=== PATIENT | male | born 1955 | race Caucasian/White ===

== ENCOUNTER 2020-11-22 00:13 | Emergency (ER) | payer OTHER, MEDICARE ==
[2020-11-22 01:49] LABS: Absolute Lymphocytes (CBC) 0.7 K/uL (0.7-4.9); Basophils % 1.6 % (0-1.3); Hematocrit 52.6 % (39.6-49.0); Lymphocytes % 8.2 % (15.3-44.8); MPV 7.2 fL (7.6-11.3); Protime INR 1.01
[2020-11-22 02:03] LABS: ALT/SGPT 33 U/L (12-78); AST/SGOT 28 U/L (15-37); Albumin 4.1 g/dL (3.4-5.0); Alkaline Phosphatase 50 U/L (45-117); BUN Blood Urea Nitrogen 9 mg/dL (7-18); Bicarbonate 24 mmol/L (21-32); Bilirubin Direct 0.1 mg/dL (0-0.2); Bilirubin Total 0.4 mg/dL (0.2-1.0); Glucose Level 153 mg/dL (74-106); Magnesium 2.1 mg/dL (1.8-2.4); NT PRO-BNP 311 pg/mL (<125); Potassium 3.4 mmol/L (3.5-5.1); Protein, Total 8.4 g/dL (6.4-8.2); Sodium Level 135 mmol/L (136-145); Troponin (Emerg Dept Use Only) < 0.02 ng/mL (0.0-0.045)
[2020-11-22] MEDS ORDERED: MECLIZINE HCL 12.5 MG TAB ONE (04:07)
[2020-11-22] MEDS ORDERED: POTASSIUM CL SA 10 MEQ TAB PO ONE (04:08)
[2020-11-22] MEDS ORDERED: NA CHLORIDE 0.9% 500 ML ONE (04:09)
[2020-11-22] MEDS ORDERED: NA CHLORIDE 0.9% 1,000 ML ONE (04:10)
--- NOTE | 2020-11-22 04:26 | ER ---
Nurse's Notes [facility] Name: Krishna Don Age: 65 yrs Sex: Male : 1955 Arrival Date: 11/22/2020 Time: 00:16 Bed 13 Private MD: Diagnosis: Chest pain. Dizziness Presentation: 11/22 00:51 Chief complaint: Patient states: Dizziness, chest pain and feeling funny since 22:45. kg Coronavirus screen: Vaccine status: Patient reports receiving the 2nd dose of the covid vaccine. Date June 2020 Patient reports receiving the 1st dose of the Covid vaccine. Date May 2020. Ebola Screen: Patient negative for fever greater than or equal to 101.5 degrees Fahrenheit, and additional compatible Ebola Virus Disease symptoms Patient denies exposure to infectious person. Patient denies travel to an Ebola-affected area in the 21 days before illness onset. No symptoms or risks identified at this time. Initial Sepsis Screen: Does the patient meet any 2 criteria? No. Patient's initial sepsis screen is negative. Does the patient have a suspected source of infection? No. Patient's initial sepsis screen is negative. Risk Assessment: Do you want to hurt yourself or someone else? Patient reports no desire to harm self or others. Onset of symptoms was November 21, 2020 at 22:45. 00:51 Method Of Arrival: Ambulatory kg 00:51 Acuity: KAREN 3 kg Triage Assessment: 00:54 General: Appears in no apparent distress. Behavior is calm, cooperative, appropriate kg for age, quiet. Pain: Complains of pain in chest. Historical: - Allergies: 00:54 Iodine; kg 00:54 Codeine; kg - Home Meds: 00:54 Lipitor Oral [Active]; "Unknown what medications he takes at home" [Active]; kg - PMHx: 00:54 Hypertensive disorder; Hypercholesterolemia; kg - PSHx: 00:54 Right hip replacement; kg - Immunization history:: Adult Immunizations not up to date, Client reports receiving the 2nd dose of the Covid vaccine, Date received: June 2020 Client reports receiving the 1st dose of the Covid vaccine, May 2020. - Social history:: Smoking status: Patient uses alcohol, weekly. Screenin:12 Abuse screen: Denies threats or abuse. Nutritional screening: No deficits noted. ea Tuberculosis screening: No symptoms or risk factors identified. Fall Risk None identified. Assessment: 04:30 Reassessment:. Pain: Complains of pain in chest Pain began suddenly, 4 hours ago. wr 04:36 Cardiovascular: Chest pain. wr 05:27 Pain: Denies pain. wr Vital Signs: 00:51 Pulse 96; Resp 20; Temp 98.5(TE); Pulse Ox 99% on R/A; Weight 107.05 kg (R); Height 5 kg ft. 10 in. (177.80 cm); Pain 8/10; 03:28 BP 165 / 65; Pulse 89; Resp 20; Temp 98.29; Pulse Ox 6% ; wr 05:23 BP 141 / 85; Pulse 88; Resp 20; Temp 98.; Pulse Ox 96% ; wr 00:51 Body Mass Index 33.86 (107.05 kg, 177.80 cm) kg ED Course: 00:16 Patient arrived in ED. cf2 00:50 Inserted saline lock: 20 gauge in left antecubital area, using aseptic technique. kg 00:54 Triage completed. kg 01:09 Troponin (emerg Dept Use Only) Sent. kg 01:09 PT-INR Sent. kg 01:09 NT PRO-BNP Sent. kg 01:09 Magnesium Sent. kg 01:09 LFT's Sent. kg 01:09 CBC with Diff Sent. kg 01:09 Basic Metabolic Panel Sent. kg 01:11 Mercy Tobin, RN is Primary Nurse. kg 01:20 XRAY Chest (1 view) In Process Unspecified. EDMS 03:06 Jose Raul Velazquez MD is Attending Physician. pkl 03:12 Patient maintains SpO2 saturation greater than 95% on room air. ea 03:12 Arm band placed on right wrist. ea 03:12 Patient has correct armband on for positive identification. Call light in reach. Pulse ea ox on. NIBP on. 03:38 CT Head Brain wo Cont Sent. ms4 03:44 CT Head Brain wo Cont In Process Unspecified. EDMS 05:26 IV discontinued. wr 05:27 No provider procedures requiring assistance completed. wr Administered Medications: 03:40 Drug: Antivert (meclizine) 50 mg Route: PO; wr 03:40 Drug: NS 0.9% 500 ml Route: IV; Rate: bolus; Site: right antecubital; wr 03:42 Drug: K-Dur (potassium chloride) 20 mEq Route: PO; wr Outcome: 04:26 Discharge ordered by . savanah 05:26 Condition: stable wr 05:26 Discharge instructions given to Instructed on discharge instructions, Demonstrated understanding of Prescriptions given X 05:27 Discharged to home wr 05:29 Patient left the ED. wr Signatures: Dispatcher [employer] EDMS Joes Raul Velazquez MD MD pkl Antunez, Elena RN RN Bridgett Almonte 2 Mercy Tobin RN RN kg Rosamaria Adames RN RN ms4 Hair Graves wr
--- NOTE | 2020-11-22 04:26 | EDPHYS ---
Physician Documentation [facility] Name: Krishna Don Age: 65 yrs Sex: Male : 1955 Arrival Date: 11/22/2020 Time: 00:16 Bed 13 Private MD: ED Physician Jose Raul Velazquez HPI: 11/22 04:16 This 65 yrs old Male presents to ER via Ambulatory with complaints of Chest pkl Pain, Dizziness, CONCERNS ABOUT BLOOD PRESSURE. 04:17 The patient or guardian reports chest pain that is located primarily in the substernal pkl area. Onset: just prior to arrival. The pain does not radiate. Associated signs and symptoms: Pertinent positives: dizziness. Patient complained of chest pain and dizziness after being pulled over by security officer supervisor. Historical: - Allergies: 00:54 Iodine; kg 00:54 Codeine; kg - Home Meds: 00:54 Lipitor Oral [Active]; "Unknown what medications he takes at home" [Active]; kg - PMHx: 00:54 Hypertensive disorder; Hypercholesterolemia; kg - PSHx: 00:54 Right hip replacement; kg - Immunization history:: Adult Immunizations not up to date, Client reports receiving the 2nd dose of the Covid vaccine, Date received: June 2020 Client reports receiving the 1st dose of the Covid vaccine, May 2020. - Social history:: Smoking status: Patient uses alcohol, weekly. ROS: 04:17 Eyes: Negative for injury, pain, redness, and discharge, ENT: Negative for injury, pkl pain, and discharge, Neck: Negative for injury, pain, and swelling. 04:17 Cardiovascular: Positive for chest pain. 04:17 Respiratory: Negative for cough, shortness of breath. 04:17 Abdomen/GI: Negative for abdominal pain, nausea, vomiting, and diarrhea. 04:17 Back: Negative for acute changes. 04:17 : Negative for urinary symptoms. 04:17 MS/extremity: Negative for acute changes. 04:17 Skin: Negative for rash. 04:17 Neuro: Positive for dizziness. Exam: 04:17 Head/Face: Normocephalic, atraumatic. Eyes: Pupils equal round and reactive to light, pkl extra-ocular motions intact. Lids and lashes normal. Conjunctiva and sclera are non-icteric and not injected. Cornea within normal limits. Periorbital areas with no swelling, redness, or edema. ENT: Nares patent. No nasal discharge, no septal abnormalities noted. Tympanic membranes are normal and external auditory canals are clear. Oropharynx with no redness, swelling, or masses, exudates, or evidence of obstruction, uvula midline. Mucous membranes moist. Neck: Trachea midline, no thyromegaly or masses palpated, and no cervical lymphadenopathy. Supple, full range of motion without nuchal rigidity, or vertebral point tenderness. No Meningismus. Chest/axilla: Normal chest wall appearance and motion. Nontender with no deformity. No lesions are appreciated. Cardiovascular: Regular rate and rhythm with a normal S1 and S2. No gallops, murmurs, or rubs. Normal PMI, no JVD. No pulse deficits. Respiratory: Lungs have equal breath sounds bilaterally, clear to auscultation and percussion. No rales, rhonchi or wheezes noted. No increased work of breathing, no retractions or nasal flaring. Abdomen/GI: Soft, non-tender, with normal bowel sounds. No distension or tympany. No guarding or rebound. No evidence of tenderness throughout. Back: No spinal tenderness. No costovertebral tenderness. Full range of motion. Skin: Warm, dry with normal turgor. Normal color with no rashes, no lesions, and no evidence of cellulitis. MS/ Extremity: Pulses equal, no cyanosis. Neurovascular intact. Full, normal range of motion. Neuro: Awake and alert, GCS 15, oriented to person, place, time, and situation. Cranial nerves II-XII grossly intact. Motor strength 5/5 in all extremities. Sensory grossly intact. Cerebellar exam normal. Normal gait. Vital Signs: 00:51 Pulse 96; Resp 20; Temp 98.5(TE); Pulse Ox 99% on R/A; Weight 107.05 kg (R); Height 5 kg ft. 10 in. (177.80 cm); Pain 8/; 03:28 BP 165 / 65; Pulse 89; Resp 20; Temp 98.29; Pulse Ox 6% ; wr 05:23 BP 141 / 85; Pulse 88; Resp 20; Temp 98.; Pulse Ox 96% ; wr 00:51 Body Mass Index 33.86 (107.05 kg, 177.80 cm) kg MDM: 03:07 Patient medically screened. pkl 04:17 Data reviewed: vital signs, nurses notes, lab test result(s), EKG, radiologic studies, pkl CT scan, plain films. ED course: Disc days days. Patient understood instructions Discussed lab, EKG and imaging studies with patient. Advised to follow up with his PCP in 2 to 3 days. Patient understood instructions. 11/22 01:04 Order name: Basic Metabolic Panel kg 11/22 01:04 Order name: CBC with Diff; Complete Time: 03:19 kg 11/22 01:04 Order name: LFT's; Complete Time: 03:19 kg 11/22 01:04 Order name: Magnesium; Complete Time: 03:19 kg 11/22 01:04 Order name: NT PRO-BNP; Complete Time: 03:19 kg 11/22 01:04 Order name: PT-INR; Complete Time: 03:19 kg 11/22 01:04 Order name: Troponin (emerg Dept Use Only); Complete Time: 03:19 kg 11/22 01:04 Order name: XRAY Chest (1 view) kg 11/22 01:05 Order name: Basic Metabolic Panel; Complete Time: 03:19 EDMS 11/22 03:17 Order name: ETOH Level; Complete Time: 06:46 pkl 11/22 03:17 Order name: CT Head Brain wo Cont pkl 11/22 01:04 Order name: EKG; Complete Time: 01:06 kg 11/22 01:04 Order name: Cardiac monitoring; Complete Time: 03:14 kg 11/22 01:04 Order name: EKG - Nurse/Tech; Complete Time: 01:04 kg 11/22 01:04 Order name: IV Saline Lock; Complete Time: 01:04 kg 11/22 01:04 Order name: Labs collected and sent; Complete Time: 01:04 kg 11/22 01:04 Order name: O2 Per Protocol; Complete Time: 03:14 kg 11/22 01:04 Order name: O2 Sat Monitoring; Complete Time: 03:14 kg Administered Medications: 03:40 Drug: Antivert (meclizine) 50 mg Route: PO; wr 03:40 Drug: NS 0.9% 500 ml Route: IV; Rate: bolus; Site: right antecubital; wr 03:42 Drug: K-Dur (potassium chloride) 20 mEq Route: PO; wr Disposition Summary: 11/22/20 04:26 Discharge Ordered Location: Home pkl Problem: new pkl Symptoms: have improved pkl Condition: Stable pkl Diagnosis - Chest pain. Dizziness pkl Followup: pkl - With: Private Physician - When: 2 - 3 days - Reason: Re-evaluation by your physician Discharge Instructions: - Discharge Summary Sheet pkl Forms: - Medication Reconciliation Form pkl - Thank You Letter pkl - Antibiotic Education pkl - Prescription Opioid Use pkl Prescriptions: - Meclizine 25 mg Oral Tablet - take 1 tablet by ORAL route every 8 hours As needed; 20 tablet; Refills: 0, pkl Product Selection Permitted Signatures: Dispatcher [employer] EDJose Raul Delcid MD MD pkl Mercy Tobin RN RN Hair Valdovinos wr
[2020-11-22 05:41] VITALS: BP 141/85; TEMP 98; O2SAT 96
--- NOTE | 2020-11-22 07:29 | RAD REPORT ---
EXAM DESCRIPTION: RAD - Chest Single View - 11/22/2020 1:20 am CLINICAL HISTORY: CHEST PAIN COMPARISON: CHEST SINGLE VIEW dated 03/27/2010; CHEST SINGLE VIEW dated 12/15/2008; Head Brain Wo Cont dated 11/22/2020 FINDINGS: Lines: None. Lungs: No evidence of edema or pneumonia. Increased prominence of the pulmonary vasculature may be [place] related. Pleural: No significant pleural effusions or pneumothorax. Cardiac: The heart size is within normal limits. Bones: No acute fractures. Other: IMPRESSION: No acute cardiopulmonary disease.
--- NOTE | 2020-11-22 10:55 | EKG ---
Test Date: 2020-11-22 Test Time: 01:01:18 Vending Route Servicer: TLT MEASUREMENT RESULTS: Intervals: Rate: 101 PA: 194 QRSD: 122 QT: 360 QTc: 466 [place]: P: 46 PA: 194 QRS: -58 T: 89 INTERPRETIVE STATEMENTS: Sinus tachycardia Left axis deviation Left bundle branch block Abnormal ECG Compared to ECG 03/27/2010 02:58:07 Left-axis deviation now present Left bundle-branch block now present Sinus rhythm no longer present Left anterior fascicular block no longer present Left ventricular hypertrophy no longer present Prolonged QT interval no longer present Electronically Signed On 11-22-20 10:53:33 CDT by Abdifatah Vance
--- NOTE | 2020-11-22 11:30 | RAD REPORT ---
EXAM DESCRIPTION: CT - Head Brain Wo Cont - 11/22/2020 6:13 am CLINICAL HISTORY: DIZZINESS TECHNIQUE: Axial computed tomography images of the head/brain without intravenous contrast. Sagitt al and coronal reformatted images were created and reviewed. This CT exam was performed using one o r more of the following dose reduction techniques: automated exposure control, adjustment of the mA and/or kV according to patient size, and/or use of iterative reconstruction technique. COMPARISON: No relevant prior studies available. FINDINGS: Brain: Unremarkable. No hemorrhage. No significant white matter disease. No edema. Ventricles: Unremarkable. No ventriculomegaly. Bones/joints: Unremarkable. No acute fracture. Soft tissues: Unremarkable. Vasculature: There is atherosclerotic disease of the internal carotid arteries bilaterally. Sinuses: Left maxillary sinus mucous retention cyst/polyp. Mild bilateral maxillary, ethmoid and fr ontal sinus mucosal thickening. Mastoid air cells: Unremarkable as visualized. No mastoid effusion. IMPRESSION: 1. No acute intracranial or extra-axial abnormality. 2. Other findings as above. Electronically signed by: Hitesh Torres MD 11/22/2020 3:58 AM CDT Due to temporary technical issues with the PACS/Fluency reporting system, reports are being signed by the in house radiologist without review as a courtesy to ensure prompt reporting. The interpreting r adiologist is fully responsible for the content of the report.
== END 2020-11-22 05:29 | disposition home or self-care (01) ==
LOC: ER 00:13
DX: R07.9 Chest pain, unspecified (principal); I10 Essential (primary) hypertension; E78.00 Pure hypercholesterolemia, unspecified; Z88.5 Allergy status to narcotic agent; Z91.048 Other nonmedicinal substance allergy status
CPT/HCPCS: 36415; 70450; 71045; 80048; 80076; 80320; 83735; 83880; 84484; 85025; 85610; 93005; 99284; J7030; J7040